=== PATIENT | male | born 1985 | race African-American/Black ===

== ENCOUNTER 2016-07-08 23:23 | Inpatient (IN) | payer SELFPAY ==
[~2016-07-08 23:23] MED LIST: SUCCINYLCHOLINE CHLORIDE INJ 200 MG/10 ML VIAL ONE
[2016-07-08] MEDS ORDERED: ETOMIDATE INJ/PF 20 MG/10 ML SDV IV ONE ×2 (23:30→23:39)
[2016-07-08] MEDS ORDERED: PROPOFOL INJ 200 MG/20 ML VIAL IV ONE (23:36)
[2016-07-08] MEDS ORDERED: PROPOFOL 100 ML IV PRN (23:37)
[2016-07-08] MEDS ORDERED: PROPOFOL 100 ML IV ONE (23:38)
[2016-07-08] MEDS ORDERED: SUCCINYLCHOLINE CHLORIDE INJ 200 MG/10 ML VIAL IV ONE (23:39)
[2016-07-09 00:13] LABS: HEMATOCRIT 43.5 % (37.9-51.0); HEMOGLOBIN 14.3 g/dL (13.5-17.0); HGB HCT DIFFERENCE -0.6; MEAN CORPUSCULAR HEMOGLOBIN 32.8 pg (27.0-33.4); MEAN CORPUSCULAR HGB CONC 32.9 g/dL (32.0-36.0); MEAN CORPUSCULAR VOLUME 100 fl (80-97); RED BLOOD COUNT 4.36 10^6/uL (4.35-5.55); RED CELL DISTRIBUTION WIDTH 14.3 % (11.5-14.0)
[2016-07-09 00:41] LABS: BASOPHILS % (MANUAL) 0 % (0-2); EOSINOPHILS % (MANUAL) 4 % (0-6); LYMPHOCYTES % (MANUAL) 55 % (13-45); NUCLEATED RED BLOOD CELLS 0 /100 WBC (0); TOTAL CELLS COUNTED 100
[2016-07-09 00:42] LABS: ANISOCYTOSIS SLIGHT; TOXIC GRANULATION SLIGHT
[2016-07-09 00:46] LABS: ALANINE AMINOTRANSFERASE 23 U/L (21-72); ALBUMIN 4.1 g/dL (3.5-5.0); ALKALINE PHOSPHATASE 83 U/L (38-126); ANION GAP 17 (5-19); ASPARTATE AMINO TRANSFERASE 66 U/L (17-59); BILIRUBIN,TOTAL 0.4 mg/dL (0.2-1.3); BLOOD UREA NITROGEN 17 mg/dL (7-20); CALCIUM 8.5 mg/dL (8.4-10.2); CARBON DIOXIDE 23 mmol/L (22-30); CHLORIDE 102 mmol/L (98-107); CREATININE RESULT 1.47 mg/dL (0.52-1.25); GLUCOSE 295 mg/dL (75-110); MAGNESIUM 2.2 mg/dL (1.6-2.3); POTASSIUM 3.5 mmol/L (3.6-5.0); SODIUM 142.3 mmol/L (137-145); TOTAL PROTEIN 6.2 g/dL (6.3-8.2)
[2016-07-09] MEDS ORDERED: FENTANYL CITRATE INJ/PF 100 MCG/2 ML AMPUL ONE (00:49)
[2016-07-09] MEDS ORDERED: VANCOMYCIN HCL INJ 1000 MG VIAL IV ONE (00:51)
[2016-07-09] MEDS ORDERED: CEFTRIAXONE INJ 1000 MG VIAL IV ONE (00:52)
[2016-07-09] MEDS ORDERED: MIDAZOLAM HCL 100 ML IV ONE (01:07)
[2016-07-09] MEDS ORDERED: MIDAZOLAM HCL 100 ML IV PRN (01:07)
--- NOTE | 2016-07-09 01:39 | ER Document Report ---
ED General - General Stated Complaint: UNRESPONSIVE Notes: Patient is a 30-year-old male presents with complaint of being found unresponsive on the road. Friends probably found him dropped him off in front of the ER. They would not stay and left shortly after dropping him off. No further history is obtainable at this time. TRAVEL OUTSIDE OF THE [place] IN LAST 30 DAYS: No Past Medical History - Social History Smoking Status: Unknown if Ever Smoked Frequency of alcohol use: unkown Drug Abuse: Other - unknown Family History: Reviewed & Not Pertinent - Immunizations Hx Diphtheria, Pertussis, Tetanus Vaccination: Yes Review of Systems - Review of Systems -: Yes ROS unobtainable due to patient's medical condition - Patient is unresponsive. Physical Exam - Vital signs Vitals: Resp BP Pulse Ox 13 176/86 H 98 07/08/16 23:24 07/08/16 23:24 07/08/16 23:24 - Notes Notes: General Appearance: Patient is unresponsive. Has shallow breathing. Cyanotic appearing. Vitals: reviewed, See vital signs table. Head: no swelling or tenderness to the head Eyes: PERRL, EOMI, Conjuctiva clear Mouth: No decreasd moisture Throat: No tonsillar inflammation, No airway obstruction, No lymphadenopathy Neck: Supple, no neck tenderness, No thyromegaly Lungs: No wheezing, No rales, No rhonci, No accessory muscle use, good air exchange bilaterally. Heart: Normal rate, Regular rythm, No murmur, no rub Abdomen: Normal BS, soft, No rigidity, No abdominal tenderness, No guarding, no rebound, no abdominal masses, no organomegaly. Scar in the shape of an "x" on anterior abdomen. Extremities: strength 5/5 in all extremities, good pulses in all extremities, no swelling or tenderness in the extremities, no edema. Skin: warm, dry, appropriate color, no rash Neuro: Unresponsive. Does not respond to painful stimuli. Pupils are pinpoint. Course - Vital Signs Vital signs: Temp Pulse Resp BP Pulse Ox 95.3 F L 14 105/67 95 07/09/16 04:16 07/09/16 04:16 07/09/16 04:16 07/09/16 04:16 - Laboratory Result Diagrams: 07/08/16 23:30 07/08/16 23:30 Laboratory results interpreted by me: 07/08/16 07/08/16 07/09/16 23:30 23:30 00:24 WBC 13.0 H MCV 100 H RDW 14.3 H Seg Neuts % (Manual) 27 L Lymphocytes % (Manual) 55 H Abs Lymphs (Manual) 8.1 H Potassium 3.5 L Creatinine 1.47 H Est GFR (Non-Af Amer) 57 L Glucose 295 H POC Glucose 183 H AST 66 H Total Protein 6.2 L Urine Glucose (UA) Urine Ketones Urine Urobilinogen Urine Ascorbic Acid Salicylates < 1.0 L Acetaminophen < 10 L 07/09/16 01:49 WBC MCV RDW Seg Neuts % (Manual) Lymphocytes % (Manual) Abs Lymphs (Manual) Potassium Creatinine Est GFR (Non-Af Amer) Glucose POC Glucose AST Total Protein Urine Glucose (UA) >=500 H Urine Ketones TRACE H Urine Urobilinogen 2.0 H Urine Ascorbic Acid 20 H Salicylates Acetaminophen - EKG Interpretation by Me Additional EKG results interpreted by me: 07/09/16 02:05 EKG is reviewed and interpreted by me. EKG shows normal sinus rhythm with rate of [address] segment elevation several leads. No reciprocal ST segment depression. NC interval and QTC intervals are within normal range. QRS duration is slightly prolonged. - Transfer of Care Notes: 07/09/16 04:44 Patient did start to gag on the tube trial after his place. He did require sedation. Patient was intubated because he had no response to 2 mg of Narcan. His pupils did become a large of the Narcan but he had no increase in respiratory rate and continued to be in a state where he was not protecting his airway. I suspect the patient probably did overdose on a combination of drugs. His drug screen was positive for cocaine and marijuana. Unsure what else he may have taken at this time. He has no fevers. No signs infection. His family saw him earlier today and he was completely normal. I did scan his head and neck which were negative. There is no evidence of trauma on exam. I did speak with the hospitalist who agrees to admit the patient for further treatment. I did speak with the family and informed them of the findings and plan and they are agreeable to it. Patient's brother is the next of kin. His phone number is [phone]. Dictation of this chart was performed using voice recognition software; therefore, there may be some unintended grammatical errors. Procedures - Intubation Orotracheal Airway evaluation: Normal anatomy Intubation method: Orotracheal Blade type: Gini Blade size: 3 ETT size: 7.5 ETT secured at: Gums ETT secured at (cm): 23 Breath Sounds after Intubation: Equal End tidal CO2 confirmed: Yes Intubation Complications: No complications Critical Care Note - Critical Care Note Total time excluding time spent on procedures (mins): 45 Comments: Critical care time for this patient not including time spent on procedures approximately 45 minutes due to frequent re-evaluations, adjustment of sedation , treatment of initial hypoxemia and altered mental status. Discharge - Discharge Clinical Impression: Unresponsive, Hypoxemia Condition: Stable Disposition: ADMITTED INPATIENT Admitting Provider: Hospitalist Unit Admitted: ICU
[2016-07-09 02:27] LABS: APPEARANCE,URINE CLEAR; BILIRUBIN,URINE NEGATIVE (NEGATIVE); GLUCOSE, URINE >=500 mg/dL (NEGATIVE); KETONES,URINE TRACE mg/dL (NEGATIVE); LEUKOCYTE ESTERASE,URINE NEGATIVE (NEGATIVE); NITRITE,URINE NEGATIVE (NEGATIVE); PROTEIN,URINE NEGATIVE (NEGATIVE); URINE SPECIFIC GRAVITY 1.018
[2016-07-09 02:40] LABS: CREATINE KINASE MB 0.71 ng/mL (<4.55)
[2016-07-09 02:40] LABS: URINE BARBITURATES SCREEN NEGATIVE; URINE METHADONE SCREEN NEGATIVE; URINE OPIATES LOW NEGATIVE; URINE PHENCYCLIDINE SCREEN NEGATIVE
[2016-07-09 02:41] LABS: TROPONIN I < 0.012 ng/mL
[2016-07-09] MEDS ORDERED: ONDANSETRON HCL INJ/PF 4 MG/2 ML SDV IV PRN (06:38)
[2016-07-09] MEDS ORDERED: IPRATROPIUM/ALBUTEROL 0.5-2.5 MG/3 ML AMPUL NEB PRN (06:38)
[2016-07-09] MEDS ORDERED: FENTANYL CITRATE INJ/PF 100 MCG/2 ML AMPUL IV PRN (06:42)
[2016-07-09] MEDS ORDERED: NORMAL SALINE 1000 ML 1,000 ML IV SCH (06:45)
[2016-07-09 06:58] LABS: ARTERIAL BLOOD BASE EXCESS -1.4 mmol/L; ARTERIAL BLOOD O2 SATURATION 99.6 % (94-98)
--- NOTE | 2016-07-09 07:30 | PDOC H&P ---
History of Present Illness Admission Date/PCP: 07/09/16 06:38 Patient complains of: Altered mental status History of Present Illness: COREY SWEENEY is a 30 year old male with an unknown past medical history who was dropped off at the front door of the emergency room unresponsive with hypothermia, pinpoint pupils and unable to protect airway unresponsive after trial of Narcan 2. requiring emergent intubation in the emergency room. Otherwise found to have leukocytosis and an ABG suggestive of acute respiratory failure with hypercapnia and an AA gradient suggestive of underlying hypoxia. Urine drug screen positive for cocaine and THC, salicylates and acetaminophen level negative. Referred to the hospitalist for admission. Past Medical History Medical History: Other - Unable to obtain Past Surgical History Past Surgical History: Unable to obtain Social History Information Source: Emergency Med Personnel Lives with: Other - Unable to obtain Smoking Status: Unknown if Ever Smoked - Advance Directive Resuscitation Status: Full Code Family History Family History: Reviewed & Not Pertinent, Other - Unable to obtain Parental Family History Reviewed: No - unobtainable Children Family History Reviewed: No Sibling(s) Family History Reviewed.: No Medication/Allergy Home Medications: Ciprofloxacin HCl [Cipro 500 mg Tablet] 500 mg PO BID #20 tablet 03/02/15 Sulfamethoxazole/Trimethoprim [Bactrim Ds Tablet] 2 each PO BID #40 tablet 03/02 Tramadol HCl [Ultram 50 mg Tablet] 50 mg PO ASDIR PRN #20 tablet 03/02/15 Allergies/Adverse Reactions: Unable to Assess Allergy (Verified 07/09/16 07:06) Review of Systems ROS unobtainable: Due to mental status Physical Exam Vital Signs: Temp Pulse Resp BP Pulse Ox 98.4 F 14 114/64 97 07/09/16 07:01 07/09/16 07:01 07/09/16 07:01 07/09/16 07:01 General appearance: PRESENT: thin, other - Intubated and sedated Head exam: PRESENT: atraumatic, normocephalic Eye exam: PRESENT: other - Pupils symmetric at 2 mm and poorly responsive without corneal reflex Ear exam: PRESENT: normal external ear exam Mouth exam: PRESENT: moist, tongue midline Neck exam: ABSENT: carotid bruit, JVD, lymphadenopathy, thyromegaly Respiratory exam: PRESENT: unlabored Cardiovascular exam: PRESENT: RRR. ABSENT: diastolic murmur, rubs, systolic murmur Pulses: PRESENT: normal dorsalis pedis pul Vascular exam: PRESENT: normal capillary refill GI/Abdominal exam: PRESENT: normal bowel sounds, soft. ABSENT: distended, guarding, mass, organolmegaly, rebound, tenderness Rectal exam: PRESENT: deferred Extremities exam: PRESENT: full ROM. ABSENT: calf tenderness, clubbing, pedal edema Musculoskeletal exam: PRESENT: full ROM, other - No spontaneous movement of extremities and no posturing Neurological exam: PRESENT: other - No gag or corneal reflex nor spontaneous movement of extremities and no posturing Psychiatric exam: PRESENT: other Skin exam: PRESENT: dry, intact, warm. ABSENT: cyanosis, rash Results Impressions: Head CT 07/08/16 23:37 IMPRESSION: NORMAL BRAIN CT WITHOUT CONTRAST. Cervical Spine CT 07/09/16 00:00 IMPRESSION: NO ACUTE OR SIGNIFICANT FINDINGS IN THE CERVICAL SPINE. Chest X-Ray 07/09/16 01:09 IMPRESSION: No acute consolidations or pleural effusions are identified. Other findings as noted above Assessment & Plan - Diagnosis (1) Overdose Qualifiers: Encounter type: initial encounter Is this a current diagnosis for this admission?: YesPlan: Supportive measures reevaluation of tox screen, EKG and labs continue ventilator support (2) Polysubstance abuse Is this a current diagnosis for this admission?: YesPlan: Supportive measures and mental health follow-up (3) Hypoxemia Is this a current diagnosis for this admission?: YesPlan: Likely aspiration event continue supportive measures consider empiric antibiotic (4) Unresponsive Is this a current diagnosis for this admission?: YesPlan: Overdose of unclear intent mental health consultation when alert - Time Time Spent: 50 to 70 Minutes
[2016-07-09] MEDS ORDERED: DEXTROSE 50%-WATER 25 GM/50 ML DISP.SYRIN IV PRN ×2 (07:39)
[2016-07-09] MEDS ORDERED: GLUCAGON,HUMAN RECOMB 1 MG INJ IM PRN (07:39)
[2016-07-09] MEDS ORDERED: DEXTROSE 40% GEL 15 GM TUBE PO PRN ×2 (07:39)
[2016-07-09] MEDS ORDERED: INSULIN LISPRO 100 UNIT/ML 3 ML VIAL SUBCUT PRN (07:39)
[2016-07-09] MEDS ORDERED: NORMAL SALINE 1000 ML 1,000 ML IV PRN (07:40)
[2016-07-09 07:43] LABS: ANION GAP 9 (5-19); BLOOD UREA NITROGEN 16 mg/dL (7-20); CALCIUM 8.7 mg/dL (8.4-10.2); CARBON DIOXIDE 25 mmol/L (22-30); CHLORIDE 107 mmol/L (98-107); CREATINE KINASE 226 U/L (55-170); CREATININE RESULT 1.08 mg/dL (0.52-1.25); GLUCOSE 99 mg/dL (75-110); SODIUM 140.9 mmol/L (137-145)
[2016-07-09 07:54] LABS: CREATINE KINASE MB 1.88 ng/mL (<4.55); TROPONIN I 0.029 ng/mL
[2016-07-09] MEDS ORDERED: IPRATROPIUM/ALBUTEROL 0.5-2.5 MG/3 ML AMPUL NEB SCH (08:00)
[2016-07-09 08:05] LABS: LITHIUM < 0.2 mEq/L (0.6-1.2)
--- NOTE | 2016-07-09 08:51 | PSYCHOLOGICAL NOTE ---
Psych Note - Psych Note Psych Note: Patient presented to [facility] ED with an unknown past medical history who was dropped off at the front door of the emergency room unresponsive with hypothermia, pinpoint pupils and unable to protect airway. Person that dropped off the patient did not stay. Patient is currently intubated and unable to communicate/engage in evaluation; daily checks will be conducted to assessment cognitive status to ascertain ability to communicate and engage in evaluation.
[2016-07-09] MEDS ORDERED: LORAZEPAM INJ 2 MG/1 ML VIAL IV PRN ×2 (09:19→15:24)
[2016-07-09 09:59] LABS: ABSOLUTE EOSINOPHILS # (AUTO) 0.3 10^3/uL (0.0-0.6); ABSOLUTE LYMPHOCYTES (AUTO) 2.1 10^3/uL (0.5-4.7); ABSOLUTE MONOCYTES (AUTO) 0.4 10^3/uL (0.1-1.4); ABSOLUTE NEUT (AUTO) 3.1 10^3/uL (1.7-8.2); BASOPHILS % (AUTO) 0.5 % (0-2); EOSINOPHILS % (AUTO) 4.4 % (0-6); HEMATOCRIT 39.1 % (37.9-51.0); HEMOGLOBIN 13.2 g/dL (13.5-17.0); HGB HCT DIFFERENCE 0.5; LYMPHOCYTES % (AUTO) 34.8 % (13-45); MEAN CORPUSCULAR HEMOGLOBIN 32.8 pg (27.0-33.4); MEAN CORPUSCULAR HGB CONC 33.8 g/dL (32.0-36.0); MEAN CORPUSCULAR VOLUME 97 fl (80-97); MONOCYTES % (AUTO) 7.4 % (3-13); RED BLOOD COUNT 4.02 10^6/uL (4.35-5.55); RED CELL DISTRIBUTION WIDTH 14.6 % (11.5-14.0); SEGMENTED NEUTROPHILS % (AUTO) 52.9 % (42-78); WHITE BLOOD COUNT 5.9 10^3/uL (4.0-10.5)
[2016-07-09 10:26] LABS: ALANINE AMINOTRANSFERASE 23 U/L (21-72); ALBUMIN 3.4 g/dL (3.5-5.0); ALKALINE PHOSPHATASE 76 U/L (38-126); ANION GAP 8 (5-19); ASPARTATE AMINO TRANSFERASE 39 U/L (17-59); BILIRUBIN,TOTAL 0.6 mg/dL (0.2-1.3); BLOOD UREA NITROGEN 16 mg/dL (7-20); CALCIUM 8.5 mg/dL (8.4-10.2); CARBON DIOXIDE 26 mmol/L (22-30); CHLORIDE 108 mmol/L (98-107); CREATININE RESULT 1.12 mg/dL (0.52-1.25); GLUCOSE 84 mg/dL (75-110); POTASSIUM 4.3 mmol/L (3.6-5.0); SODIUM 142.2 mmol/L (137-145); TOTAL PROTEIN 5.8 g/dL (6.3-8.2)
[2016-07-09 10:52] LABS: ARTERIAL BLOOD BASE EXCESS 0.4 mmol/L; ARTERIAL BLOOD O2 SATURATION 98.4 % (94-98)
--- NOTE | 2016-07-09 11:04 | EKG REPORT ---
SEVERITY:- NORMAL ECG - SINUS RHYTHM ST ELEV, PROBABLE NORMAL EARLY REPOL PATTERN : Confirmed by: Blanka Porter 09-Jul-2016 11:04:02
[2016-07-09 11:06] LABS: ADD HIVPANEL? NO; HIV (1 AND 2) ANTIBODY NEGATIVE (NEGATIVE)
--- NOTE | 2016-07-09 11:06 | EKG REPORT ---
SEVERITY:- ABNORMAL ECG - SINUS RHYTHM NONSPECIFIC INTRAVENTRICULAR CONDUCTION DELAY EARLY REPOLARIZATION CHANGES LATERAL CHEST LEADS VS PERICARDITIS CHANGES : Confirmed by: Blanka Porter 09-Jul-2016 11:05:34
[2016-07-09] MEDS ORDERED: HEPARIN SOD (PORCINE) 5,000 UNIT/ML 1 ML SYRINGE SUBCUT SCH (14:00)
[2016-07-09] MEDS ORDERED: LORAZEPAM INJ 2 MG/1 ML VIAL ONE (14:31)
[2016-07-09] MEDS ORDERED: LORAZEPAM INJ 2 MG/1 ML VIAL IV ONE (14:34)
[2016-07-09] MEDS ORDERED: PHENYTOIN SODIUM INJ/PF 250 MG/5 ML SDV IV ONE (14:34)
[2016-07-09] MEDS ORDERED: VECURONIUM BROMIDE INJ 10 MG VIAL IV ONE (14:37)
[2016-07-09] MEDS ORDERED: PIPERACILLIN SODIUM/TAZOBACTAM 4.5 GM in NORMAL SALINE 100 ML IV SCH (14:45)
[2016-07-09 15:28] LABS: ANION GAP 8 (5-19); BLOOD UREA NITROGEN 13 mg/dL (7-20); CALCIUM 8.9 mg/dL (8.4-10.2); CARBON DIOXIDE 27 mmol/L (22-30); CHLORIDE 108 mmol/L (98-107); CREATININE RESULT 1.21 mg/dL (0.52-1.25); GLUCOSE 71 mg/dL (75-110); SODIUM 143.4 mmol/L (137-145)
[2016-07-09] MEDS ORDERED: MIDAZOLAM 2 MG/2 ML INJ ONE (15:35)
[2016-07-09] MEDS ORDERED: MIDAZOLAM 2 MG/2 ML INJ IV ONE ×2 (15:36→15:45)
[2016-07-09 15:39] LABS: CREATINE KINASE MB 7.89 ng/mL (<4.55); TROPONIN I 0.017 ng/mL
[2016-07-09 15:40] LABS: POTASSIUM 5.4 mmol/L (3.6-5.0)
[2016-07-09] MEDS ORDERED: NORMAL SALINE 1000 ML 1,000 ML IV ONE (15:45)
--- NOTE | 2016-07-09 15:45 | PDOC TRANSFER SUMMARY ---
General Admission Date/PCP: 07/09/16 06:38 Admission Date: 07/09/16 Transfer Date: 07/09/16 Accepting Facility: [facility] Accepting Physician: Dr. Castro Resuscitation Status: Full Code - Transfer Diagnosis (1) Acute hypoxemic respiratory failure Is this a current diagnosis for this admission?: YesDiagnosis Summary: Patient is currently intubated. This likely secondary to unknown ingestion and aspiration pneumonia. Have repeated ABG at this time. (2) Aspiration pneumonia Is this a current diagnosis for this admission?: YesDiagnosis Summary: Have initiated patient on clindamycin. Scheduled nebulized treatments and aggressive pulmonary toileting (3) New onset seizure Is this a current diagnosis for this admission?: YesDiagnosis Summary: Patient had tonic-clonic activity for approximately 3 minutes while sedated on propofol and Versed. Patient was given 2 mg of Ativan with improvement of his symptoms and was loaded with 1 g of Dilantin. Prolactin level has been sent. At this time, unable to perform EEG nor do I have neurology services. The likely secondary to ingestion and/or withdrawal. (4) Hyperglycemia Is this a current diagnosis for this admission?: YesDiagnosis Summary: Hemoglobin A1c of 5.3. Currently on Accu-Cheks every 6 and sliding scale insulin. (5) Hypothermia Is this a current diagnosis for this admission?: YesDiagnosis Summary: TSH was found to be normal. Patient's hypothermia is likely secondary to exposure though concern remains for SIRS. (6) Polysubstance abuse Is this a current diagnosis for this admission?: YesDiagnosis Summary: Patient was found with positive for both cocaine and marijuana. We are unable to obtain any collateral information about any other usage. (7) Acute metabolic encephalopathy Is this a current diagnosis for this admission?: YesDiagnosis Summary: Patient was found to be unresponsive and was intubated for airway protection. - Transfer Medications Home Medications: No Home Medications 07/09/16 Transfer Medications: Current Medications Albuterol/Ipratropium (Duoneb 3 Ml Ampul) 3 ml NEB RTQ6HP PRN Stop: 08/08/16 06:37 Albuterol/Ipratropium (Duoneb 3 Ml Ampul) 3 ml NEB RTQ12 RAÚL Stop: 08/08/16 07:59 Last Admin: 07/09/16 08:47 Dose: 3 ml Dextrose (Dextrose Inj 50% Syringe (25 Gm/50 Ml)) 12.5 gm IV PRN PRN; Protocol PRN Reason: FOR BG 50-69 IN ALERT PATIENT Stop: 08/08/16 07:38 Dextrose (Dextrose Inj 50% Syringe (25 Gm/50 Ml)) 25 gm IV PRN PRN PRN Reason: Protocol Stop: 08/08/16 07:38 Fentanyl Citrate (Sublimaze Inj/Pf 100 Mcg/2 Ml Ampule) 100 mcg IV Q4HP PRN Stop: 07/16/16 06:41 Glucagon (Glucagen Inj 1 Mg Vial) 1 mg IM PRN PRN; Protocol PRN Reason: Evaluate for BG < 70 Stop: 08/08/16 07:38 Glucose (Glutose 40% Gel 15 Gm Tube) 15 gm PO PRN PRN; Protocol PRN Reason: FOR BG 50-69 IN ALERT PATIENT Stop: 08/08/16 07:38 Glucose (Glutose 40% Gel 15 Gm Tube) 30 gm PO PRN PRN; Protocol PRN Reason: FOR BG < 50 IN ALERT PATIENT Stop: 08/08/16 07:38 Heparin Sodium (Porcine) (Heparin Inj 5,000 Units/Ml 1 Ml Syringe) 5,000 unit SUBCUT Q8 RAÚL Stop: 08/08/16 13:59 Midazolam HCl (Versed Rtu 50 Mg/100 Ml Premix Bag) 100 mls @ 0 mls/hr IV CONTINUOUS PRN; Protocol; Titrate PRN Reason: THIS MED IS NOT "PRN" Stop: 07/16/16 01:06 Sodium Chloride (Nacl 0.9% 1000 Ml Iv Soln) 1,000 mls @ 200 mls/hr IV X 3 BAGS [facility] Stop: 08/08/16 06:44 Propofol (Diprivan Rtu 1000 Mg/100 Ml Inf.Bottle) 100 mls @ 0 mls/hr IV CONTINUOUS PRN; Protocol; Titrate PRN Reason: THIS MED IS NOT "PRN" Stop: 08/08/16 06:41 Sodium Chloride (Nacl 0.9% 1000 Ml Iv Soln) 1,000 mls @ 200 mls/hr IV CONTINUOUS PRN PRN Reason: THIS MED IS NOT "PRN" Stop: 08/08/16 07:39 Clindamycin Phosphate/Dextrose (Cleocin Rtu 900 Mg/D5w 50 Ml Premix) 50 mls @ 50 mls/hr IV Q8 RAÚL Stop: 07/16/16 21:59 Sodium Chloride (Nacl 0.9% 1000 Ml Iv Soln) 1,000 mls @ 0 mls/hr IV BOLUS ONE PRN Reason: Wide Open Stop: 07/09/16 15:27 Insulin Human Lispro (Humalog Insulin 100 Unit/1 Ml 3 Ml Vial) 0 - 12 unit SUBCUT Q6HP PRN PRN Reason: Protocol Stop: 08/08/16 07:38 Lorazepam (Ativan Inj 2 Mg/1 Ml Vial) 2 mg IV Q2HP PRN PRN Reason: ANXIETY Stop: 07/16/16 09:18 Midazolam HCl (Versed 2 Mg/2 Ml Inj) 4 mg IV NOW ONE Stop: 07/09/16 15:25 Ondansetron HCl (Zofran Inj/Pf 4 Mg/2 Ml Sdv) 4 mg IV Q8HP PRN Stop: 08/08/16 06:37 - Allergies Allergies/Adverse Reactions: Unable to Assess Allergy (Verified 07/09/16 07:06) - Diet/Activity Discharge Diet: Other (Comments) - Nothing by mouth Discharge Activity: Bedrest Hospital Course Hospital Course: COREY SWEENEY is a 30 year old male with an unknown past medical history who was dropped off at the front door of the emergency room unresponsive with hypothermia, pinpoint pupils and unable to protect airway unresponsive after trial of Narcan 2. requiring emergent intubation in the emergency room. Otherwise found to have leukocytosis and an ABG suggestive of acute respiratory failure with hypercapnia and an AA gradient suggestive of underlying hypoxia. Urine drug screen positive for cocaine and THC, salicylates and acetaminophen level negative. Patient had been stable on ventilator although making no improvements his first mentation due to only being sedated when he began having tonic-clonic seizure- like activity. This lasted approximately 3 minutes and occurred while patient was sedated with propofol and Versed. Patient was given Ativan with improvement of symptoms. CT scan was ordered as were repeat laboratory studies. Patient was loaded with 1 g of Dilantin and Dr. Castro was kind enough to accept this patient in transfer as we do not have any neurologic services nor will have anyone available to read an EEG. Currently patient is stable and awaiting transfer to [facility]. His mother was contacted in agreement with plan. She denies any past medical history and is unable to provide any collateral information. Physical Exam Vital Signs: Temp Pulse Resp BP Pulse Ox 97.3 F 73 14 118/73 100 07/09/16 13:01 07/09/16 08:47 07/09/16 13:01 07/09/16 13:01 07/09/16 13:01 Intake & Output 07/08/16 07/09/16 07/10/16 06:59 06:59 06:59 Output Total 300 Balance -300 Exam: General: Intubated, sedated, no acute respiratory distress HEENT: AT/NC, pupils minimally reactive 2 mm round, oropharynx is moist with copious clear secretions, pink, no scleral icterus, bilateral conjunctival injection Neck: No JVD, trachea midline Chest: Occasional scattered rhonchi bilateral bases CV: Regular rate and rhythm, normal S1 and S2, no murmur, rub, or gallop Abdomen: Soft, nondistended, diminished bowel sounds : Normal male external genitalia with Valdes catheter in place draining clear yellow urine, bilateral descended testes without masses Extremities: No cyanosis, clubbing or edema Back: No deformities Skin: No rashes, lesions, or splinter hemorrhages; antecubital scar in right arm , X superficial scar on abdomen and 3 parallel scars across left upper chest Results Laboratory Results: 07/09/16 08:30 07/09/16 07/09/16 07/09/16 07:05 08:30 08:30 WBC RBC Hgb Hct MCV MCH MCHC RDW Plt Count Seg Neutrophils % Lymphocytes % Monocytes % Eosinophils % Basophils % Absolute Neutrophils Absolute Lymphocytes Absolute Monocytes Absolute Eosinophils Absolute Basophils Retic Count (auto) 0.93 Absolute Retic 0.037 Carbonic Acid HCO3/H2CO3 Ratio ABG pH ABG pCO2 ABG pO2 ABG HCO3 ABG O2 Saturation ABG Base Excess FiO2 Sodium 140.9 Potassium 4.0 Chloride 107 Carbon Dioxide 25 Anion Gap 9 BUN 16 Creatinine 1.08 Est GFR ( Amer) > 60 Est GFR (Non-Af Amer) > 60 Glucose 99 Lactic Acid Calcium 8.7 Iron 92 TIBC 318 % Saturation 29 Ferritin 83.50 Total Bilirubin AST ALT Alkaline Phosphatase Total Protein Albumin Vitamin B12 329.0 Folate 11.60 TSH 07/09/16 07/09/16 07/09/16 08:30 08:30 08:30 WBC 5.9 RBC 4.02 L Hgb 13.2 L Hct 39.1 MCV 97 MCH 32.8 MCHC 33.8 RDW 14.6 H Plt Count 141 L Seg Neutrophils % 52.9 Lymphocytes % 34.8 Monocytes % 7.4 Eosinophils % 4.4 Basophils % 0.5 Absolute Neutrophils 3.1 Absolute Lymphocytes 2.1 Absolute Monocytes 0.4 Absolute Eosinophils 0.3 Absolute Basophils 0.0 Retic Count (auto) Absolute Retic Carbonic Acid HCO3/H2CO3 Ratio ABG pH ABG pCO2 ABG pO2 ABG HCO3 ABG O2 Saturation ABG Base Excess FiO2 Sodium 142.2 Potassium 4.3 Chloride 108 H Carbon Dioxide 26 Anion Gap 8 BUN 16 Creatinine 1.12 Est GFR ( Amer) > 60 Est GFR (Non-Af Amer) > 60 Glucose 84 Lactic Acid Calcium 8.5 Iron TIBC % Saturation Ferritin Total Bilirubin 0.6 AST 39 ALT 23 Alkaline Phosphatase 76 Total Protein 5.8 L Albumin 3.4 L Vitamin B12 Folate TSH 1.16 07/09/16 07/09/16 09:45 10:24 WBC RBC Hgb Hct MCV MCH MCHC RDW Plt Count Seg Neutrophils % Lymphocytes % Monocytes % Eosinophils % Basophils % Absolute Neutrophils Absolute Lymphocytes Absolute Monocytes Absolute Eosinophils Absolute Basophils Retic Count (auto) Absolute Retic Carbonic Acid 1.46 H HCO3/H2CO3 Ratio 18:1 ABG pH 7.36 ABG pCO2 48.5 H ABG pO2 129.5 H ABG HCO3 26.5 H ABG O2 Saturation 98.4 H ABG Base Excess 0.4 FiO2 35% Sodium Potassium Chloride Carbon Dioxide Anion Gap BUN Creatinine Est GFR ( Amer) Est GFR (Non-Af Amer) Glucose Lactic Acid 0.8 Calcium Iron TIBC % Saturation Ferritin Total Bilirubin AST ALT Alkaline Phosphatase Total Protein Albumin Vitamin B12 Folate TSH 07/09/16 07/09/16 07/09/16 07:05 07:05 10:24 Creatine Kinase 226 H CK-MB (CK-2) 1.88 Troponin I 0.029 0.025 07/09/16 15:00 Creatine Kinase 477 H CK-MB (CK-2) Troponin I Impressions: Head CT 07/08/16 23:37 IMPRESSION: NORMAL BRAIN CT WITHOUT CONTRAST. Cervical Spine CT 07/09/16 00:00 IMPRESSION: NO ACUTE OR SIGNIFICANT FINDINGS IN THE CERVICAL SPINE. Chest X-Ray 07/09/16 01:09 IMPRESSION: No acute consolidations or pleural effusions are identified. Other findings as noted above Plan Time Spent: Greater than 30 Minutes
[2016-07-09] MEDS: PROPOFOL 100 ML IV PRN ×2 (16:31→18:31)
[2016-07-09 16:59] LABS: ARTERIAL BLOOD BASE EXCESS -1.6 mmol/L; ARTERIAL BLOOD O2 SATURATION 99.6 % (94-98)
[2016-07-09 18:30] VITALS: BP 112/71
[2016-07-09] MEDS ORDERED: CLINDAMYCIN 900 MG/D5W RTU 50 ML IV SCH (22:00)
== END 2016-07-09 19:10 | disposition short-term general hospital (02) | DRG 917 ==
LOC: ER 23:23 → UNDOADMIN 07-09 05:09 → EH 07-09 05:09
PROVIDERS: ADMIT Internal Medicine; ATTEND Internal Medicine
PROC: 0BH17EZ Insertion of Endotracheal Airway into Trachea, Via Natural or Artificial Opening (ICD-10-PCS; principal; 2016-07-09)
PROC: 5A1935Z Respiratory Ventilation, Less than 24 Consecutive Hours (ICD-10-PCS; 2016-07-09)
DX: T65.91XA Toxic effect of unspecified substance, accidental (unintentional), initial encounter (principal); J96.01 Acute respiratory failure with hypoxia; J69.0 Pneumonitis due to inhalation of food and vomit; G93.41 Metabolic encephalopathy; J96.02 Acute respiratory failure with hypercapnia; R73.9 Hyperglycemia, unspecified; F12.10 Cannabis abuse, uncomplicated; F14.10 Cocaine abuse, uncomplicated; T68.XXXA Hypothermia, initial encounter; X31.XXXA Exposure to excessive natural cold, initial encounter; G40.909 Epilepsy, unspecified, not intractable, without status epilepticus; D72.829 Elevated white blood cell count, unspecified
CPT/HCPCS: 36415; 36600; 51702; 70450; 71010; 72125; 80048; 80053; 80178; 80307; 81001; 82550; 82553; 82607; 82728; 82746; 82803; 82962; 83036; 83540; 83550; 83605; 83735; 84146; 84443; 84466; 84484; 85025; 85045; 86701; 87040; 87070; 87205; 93005; 93010; 94002; 94003; 94640; 99291; J0330; J1165; J1644; J2250; J2704; J3010; J3490; J7620